=== PATIENT | male | born 1955 | race Caucasian/White ===

== ENCOUNTER 2018-06-15 08:49 | Inpatient (IN) | payer BC, MEDICARE ==
[~2018-06-15] VITALS: Ht 182.9 cm; Wt 96.1 kg
[2018-06-15] MEDS ORDERED: MIDAZOLAM 1 MG/ML, 2ML IVPush ONE (08:51)
[2018-06-15] MEDS ORDERED: PLEASE ENTER HEIGHT AND WEIGHT MC SCH (09:00)
[2018-06-15] MEDS ORDERED: PROPOFOL 100 ML IV ONE ×3 (09:05→17:23)
[2018-06-15] MEDS ORDERED: MIDAZOLAM 1 MG/ML, 2ML ONE ×2 (09:17→11:03)
[2018-06-15] MEDS ORDERED: SODIUM CHLORIDE 0.9%, 500ML IVBOLUS ONE (09:30)
--- NOTE | 2018-06-15 09:41 | NUR ---
LATE ENTRY FOR 0900 REC'D RPT FROM LAWANDA BARRIENTOS AND ASSUMED PT CARE. PT WAS REC'D VIA CARE FLIGHT ON TRANSFER FROM [facility] ED. PER RPT PT PRESENT TO [facility] VIA EMS WITH C/O SOB NOT RESPONSIVE TO HOME BREATHING TREATMENTS. PT WAS INTUBATED AT [facility] AND ARRIVED HERE SEDATED ON PROPOFOL 50MCG/KG/MIN. PT BEDCAME AGGITATED WHILE BEING MOVED FROM CARE FLIGHT [facility] TO ED [facility] AND WAS GIVEN 2MG OF VERSED WITH EFFECT. DR HORTA AT BEDSIDE, ASSESSMENT REV AND ORDERS REC'D.
--- NOTE | 2018-06-15 09:44 | NUR ---
LATE ENTRY FOR 919, PT BECAME AGGITATED SITTING UP AND PULLING ON RESTRAINTS WHEN STIMULATED WITH REPOSITIONING. PT DOES NOT RESPOND TO RN'S VERBAL ATTEMPTS TO ORIENT AND CALM HIM. 2MG VERSED IVP GIVEN WITH EFFECT.
[2018-06-15] MEDS ORDERED: VECURONIUM 10 MG ONE (11:03)
[2018-06-15] MEDS ORDERED: methylPREDNISolone SOD SUCC 125 MG/2 ML ONE (11:12)
[2018-06-15] MEDS: methylPREDNISolone SOD SUCC 125 MG/2 ML IVPush SCH ×2 (11:30→22:25)
[2018-06-15] MEDS: SODIUM CHLORIDE 0.9% 1,000 ML IV SCH ×2 (11:30→11:48)
[2018-06-15 12:29] LABS: RAPID INFLUENZA A Negative (Negative); RAPID INFLUENZA B Negative (Negative)
--- NOTE | 2018-06-15 13:19 | NUR ---
PT GIRLFRIEND: CRISTIANA MAYO [phone]
[2018-06-15] MEDS ORDERED: CEFTRIAXONE PMX 2GM/50ML 50 ML ONE (13:21)
[2018-06-15] MEDS: CEFTRIAXONE PMX 2GM/50ML 50 ML IVPB SCH (13:25)
[2018-06-15 13:48] LABS: TROPONIN I 0.119 ng/mL (0.000-0.045)
--- NOTE | 2018-06-15 13:52 | NUR ---
PT. REMAINS MONITORED AND ON THE VENTILATOR. PT.'S HOB IS ELEVATED GREATER THAN 30 DEGREES. PT. HAS BLANKETS IN PLACE FOR WARMTH. VITALS ARE STABLE. PT. HAS NO S/S OF DISCOMFORT. PT.'S [place] IS PRODUCING DARK YELLOW URINE. IV ABX ARE INFUSING ON THE PUMP. SIDERAILS REMAIN UP X 2.
[2018-06-15] MEDS: DOXYCYCLINE 100 MG in DEXTROSE 5% 250 ML IV SCH (13:59)
--- NOTE | 2018-06-15 14:05 | NUR ---
PT. HAS A NEW BOTTLE OF PROPOFOL INFUSING.
--- NOTE | 2018-06-15 15:25 | NUR ---
VS UPDATED AND WNL. PT REMAINS ON PROPOFOL DRIP AT 50MCG/KG/HR AND APPEARS COMFORTABLE. PT TOLERATING VENTILATOR WELL.
[2018-06-15] MEDS ORDERED: METO25TA35 PO (15:48)
--- NOTE | 2018-06-15 15:59 | NUR ---
GIRLFRIEND, ENDY, CALLED TO CHECK ON PATIENT. REQUESTED THAT ENDY CALL-BACK WITH HOME MEDICATION LIST. ENDY TO CALL BACK.
[2018-06-15] MEDS ORDERED: BISACODYL 10 MG SUPP PR PRN ×2 (16:30→19:00)
[2018-06-15] MEDS ORDERED: ACETAMINOPHEN 325 MG TABLET PO PRN (16:30)
[2018-06-15] MEDS ORDERED: POLYETHYLENE GLYCOL 17 GM PACKET PO PRN (16:30)
--- NOTE | 2018-06-15 16:45 | NUR ---
[facility] TELEPHONE HAND-OFF REPORT TO LAWANDA MITCHELL. PATIENT TO GO TO CCU SOON.
[2018-06-15] MEDS: ENOXAPARIN 40 MG/0.4 ML SQ SCH (18:24)
[2018-06-15] MEDS: ALBUTEROL/IPRATROPIUM 2.5MG/0.5MG, 3 ML INLINE SCH ×2 (19:00→22:55)
[2018-06-15] MEDS ORDERED: LACTULOSE 20 GM/30 ML UDC NG PRN (19:00)
[2018-06-15] MEDS ORDERED: GLUCAGON 1 MG IM PRN (19:00)
[2018-06-15] MEDS ORDERED: SENNA/DOCUSATE TABLET NG PRN (19:00)
[2018-06-15] MEDS ORDERED: HALOPERIDOL 5 MG/ML IVPush PRN (19:00)
[2018-06-15] MEDS ORDERED: SENNOSIDES 8.8 MG/5 ML ORAL SOL NG PRN (19:00)
[2018-06-15] MEDS ORDERED: DEXTROSE 50%, 50ML SYRINGE IVPush PRN (19:00)
[2018-06-15] MEDS ORDERED: DEXTROSE 4 GM TAB.CHEW PO PRN (19:00)
[2018-06-15] MEDS ORDERED: PHARMACY MAY ADJ FOR RENAL FX MC SCH (19:00)
[2018-06-15 19:26] LABS: INTERNATIONAL NORMALIZED RATIO 0.92 (0.93-1.1); PROTHROMBIN TIME 9.7 Seconds (9.6-11.5)
[2018-06-15 19:28] LABS: TRIGLYCERIDES 66 mg/dL (50-200)
[2018-06-15 19:34] LABS: TROPONIN I 0.118 ng/mL (0.000-0.045)
[2018-06-15] MEDS: INSULIN LISPRO 100 UNITS/ML, PEN SQ-INSULIN SCH (21:00)
[2018-06-15] MEDS: FAMOTIDINE 20 MG/2 ML IVPush SCH (22:25)
[2018-06-15] MEDS: FENTANYL PF 100 MCG/2ML IVPush PRN (22:25)
[2018-06-15] MEDS: SODIUM CHLORIDE FLUSH 10ML SYR IVF SCH (22:26)
[2018-06-15] MEDS: PROPOFOL 100 ML IV PRN ×2 (22:37→22:38)
[2018-06-15] MEDS: BUDESONIDE 0.5 MG/2 ML INHA INH SCH (22:55)
[2018-06-15 23:13] LABS: MICROSCOPIC INDICATED
[2018-06-15 23:15] LABS: CULTURE INDICATED? NO
[2018-06-16] MEDS: methylPREDNISolone SOD SUCC 125 MG/2 ML IVPush SCH ×4 (01:33→19:34)
[2018-06-16] MEDS: DOXYCYCLINE 100 MG in DEXTROSE 5% 250 ML IV SCH ×2 (01:33→12:58)
[2018-06-16] MEDS: ALBUTEROL/IPRATROPIUM 2.5MG/0.5MG, 3 ML INLINE SCH ×6 (02:17→22:24)
[2018-06-16] MEDS: PROPOFOL 100 ML IV PRN ×6 (03:20→21:34)
[2018-06-16 04:27] VITALS: BP 108/63
[2018-06-16 05:07] LABS: MEAN CORPUSCULAR HEMOGLOBIN 32.6 pg (27.5-34.5); MEAN CORPUSCULAR VOLUME 98.7 fL (81-97); MEAN PLATELET VOLUME 8.5 fL (7.4-10.4); PLATELET COUNT 146 x10^3/uL (130-400); RED BLOOD COUNT 3.92 x10^6/uL (4.38-5.82); RED CELL DISTRIBUTION WIDTH 15.5 % (9.4-14.8)
[2018-06-16 05:18] LABS: ALANINE AMINOTRANSFERASE 54 U/L (12-78); ALBUMIN 2.9 g/dL (3.4-5.0); ANION GAP 3 mmol/L (5-15); CALCIUM 7.5 mg/dL (8.5-10.1); CHLORIDE 110 mmol/L (98-107)
[2018-06-16 05:21] LABS: ALKALINE PHOSPHATASE 45 U/L (45-117); BILIRUBIN,TOTAL 0.3 mg/dL (0.2-1.0); CREATININE 0.73 mg/dL (0.7-1.3); TOTAL PROTEIN 5.8 g/dL (6.4-8.2)
[2018-06-16 05:36] LABS: BASOPHILS % (AUTO) 0 % (0-1); EOSINOPHILS % (AUTO) 0 % (1-7); LYMPHOCYTES # (AUTO) 0.27 x10^3/uL (1-3.4); LYMPHOCYTES % (AUTO) 3 % (22-44); MD SCAN; MONOCYTES # (AUTO) 0.15 x10^3/uL (0.2-0.8); MONOCYTES % (AUTO) 2 % (2-9); NEUTROPHILS # (AUTO) 7.59 x10^3/uL (1.8-6.8); NEUTROPHILS % (AUTO) 95 % (42-75)
[2018-06-16 06:59] LABS: AMPHETAMINE SCREEN, URINE Positive (Negative); BARBITURATE SCREEN, URINE Negative (Negative); BENZODIAZEPINE SCREEN, URINE Positive (Negative); CANNABINOID SCREEN, URINE Negative (Negative); COCAINE SCREEN, URINE Negative (Negative); METHADONE SCREEN, URINE Negative (Negative); OPIATE SCREEN, URINE Negative (Negative)
[2018-06-16] MEDS: BUDESONIDE 0.5 MG/2 ML INHA INH SCH ×2 (07:10→22:24)
[2018-06-16] MEDS: FENTANYL PF 100 MCG/2ML IVPush PRN ×2 (07:45→17:08)
[2018-06-16] MEDS: INSULIN LISPRO 100 UNITS/ML, PEN SQ-INSULIN SCH ×4 (08:12→23:00)
[2018-06-16] MEDS: ASPIRIN 325 MG TABLET PO SCH (08:45)
[2018-06-16] MEDS: SODIUM CHLORIDE FLUSH 10ML SYR IVF SCH ×2 (08:46→20:20)
[2018-06-16] MEDS: FAMOTIDINE 20 MG/2 ML IVPush SCH ×2 (08:46→20:20)
[2018-06-16] MEDS ORDERED: SODIUM CHLORIDE 0.9% 1,000 ML IV SCH (09:30)
--- NOTE | 2018-06-16 10:35 | NUR ---
TF GOAL: w/ propofol: PROMOTE @ 75ML/HR off propofol: PROMOTE @ 85ML/HR
[2018-06-16] MEDS ORDERED: methylPREDNISolone SOD SUCC 125 MG/2 ML IVPush ONE (10:45)
[2018-06-16] MEDS: PRASUGREL 10 MG TABLET PO SCH (12:14)
[2018-06-16] MEDS: CEFTRIAXONE PMX 2GM/50ML 50 ML IVPB SCH (12:58)
[2018-06-16] MEDS: ENOXAPARIN 40 MG/0.4 ML SQ SCH (17:59)
[2018-06-16] MEDS ORDERED: PRAS10TA4 PO (18:38)
[2018-06-16] MEDS ORDERED: PRED1TAB PO (18:38)
[2018-06-16] MEDS ORDERED: ATOR40TA78 PO (18:38)
[2018-06-16] MEDS: SIMVASTATIN 40 MG TABLET PO SCH (20:20)
[2018-06-17] MEDS: FENTANYL PF 100 MCG/2ML IVPush PRN (00:24)
[2018-06-17] MEDS: PROPOFOL 100 ML IV PRN (00:45)
[2018-06-17] MEDS: DOXYCYCLINE 100 MG in DEXTROSE 5% 250 ML IV SCH (01:17)
[2018-06-17] MEDS: methylPREDNISolone SOD SUCC 125 MG/2 ML IVPush SCH ×3 (01:41→13:46)
[2018-06-17] MEDS: ALBUTEROL/IPRATROPIUM 2.5MG/0.5MG, 3 ML INLINE SCH ×4 (02:50→16:20)
[2018-06-17 04:03] VITALS: BP 115/67
[2018-06-17 04:40] LABS: BASOPHILS # (AUTO) 0.02 x10^3/uL (0-0.1); BASOPHILS % (AUTO) 0 % (0-1); EOSINOPHILS % (AUTO) 0 % (1-7); LYMPHOCYTES % (AUTO) 3 % (22-44); MD NO; MEAN CORPUSCULAR HGB CONC 33.6 g/dL (33.2-36.2); MEAN CORPUSCULAR VOLUME 98.3 fL (81-97); MEAN PLATELET VOLUME 9.2 fL (7.4-10.4); MONOCYTES # (AUTO) 0.31 x10^3/uL (0.2-0.8); MONOCYTES % (AUTO) 3 % (2-9); NEUTROPHILS # (AUTO) 8.69 x10^3/uL (1.8-6.8); NEUTROPHILS % (AUTO) 93 % (42-75); PLATELET COUNT 137 x10^3/uL (130-400); RED BLOOD COUNT 3.72 x10^6/uL (4.38-5.82); RED CELL DISTRIBUTION WIDTH 15.3 % (9.4-14.8)
[2018-06-17 04:42] LABS: CHLORIDE 109 mmol/L (98-107)
[2018-06-17 04:54] LABS: ALANINE AMINOTRANSFERASE 41 U/L (12-78); ALBUMIN 2.8 g/dL (3.4-5.0); ALKALINE PHOSPHATASE 41 U/L (45-117); ANION GAP 5 mmol/L (5-15); BILIRUBIN,TOTAL 0.2 mg/dL (0.2-1.0); CALCIUM 7.7 mg/dL (8.5-10.1); CREATININE 0.85 mg/dL (0.7-1.3); TOTAL PROTEIN 5.5 g/dL (6.4-8.2)
[2018-06-17] MEDS: INSULIN LISPRO 100 UNITS/ML, PEN SQ-INSULIN SCH ×4 (04:59→22:59)
[2018-06-17] MEDS: BUDESONIDE 0.5 MG/2 ML INHA INH SCH ×2 (09:00→20:07)
[2018-06-17] MEDS: ASPIRIN 325 MG TABLET PO SCH (11:56)
[2018-06-17] MEDS: FAMOTIDINE 20 MG/2 ML IVPush SCH ×2 (11:56→20:03)
[2018-06-17] MEDS: PRASUGREL 10 MG TABLET PO SCH (11:56)
[2018-06-17] MEDS: SODIUM CHLORIDE FLUSH 10ML SYR IVF SCH ×2 (11:57→21:00)
[2018-06-17] MEDS: ENOXAPARIN 40 MG/0.4 ML SQ SCH ×2 (18:32→18:33)
[2018-06-17] MEDS: methylPREDNISolone SOD SUCC 40 MG/ML IVPush SCH (20:03)
[2018-06-17] MEDS: SIMVASTATIN 40 MG TABLET PO SCH (20:03)
[2018-06-17] MEDS: ALBUTEROL/IPRATROPIUM 2.5MG/0.5MG, 3 ML NPPB SCH (20:07)
[2018-06-18] MEDS: methylPREDNISolone SOD SUCC 40 MG/ML IVPush SCH ×2 (01:27→08:13)
[2018-06-18] MEDS: INSULIN LISPRO 100 UNITS/ML, PEN SQ-INSULIN SCH ×4 (04:06→21:00)
[2018-06-18 04:17] VITALS: BP 101/48
[2018-06-18 04:41] LABS: BASOPHILS # (AUTO) 0.01 x10^3/uL (0-0.1); BASOPHILS % (AUTO) 0 % (0-1); EOSINOPHILS % (AUTO) 0 % (1-7); LYMPHOCYTES # (AUTO) 0.35 x10^3/uL (1-3.4); LYMPHOCYTES % (AUTO) 3 % (22-44); MD NO; MEAN CORPUSCULAR HGB CONC 33.5 g/dL (33.2-36.2); MEAN CORPUSCULAR VOLUME 98.5 fL (81-97); MEAN PLATELET VOLUME 9.2 fL (7.4-10.4); MONOCYTES % (AUTO) 3 % (2-9); NEUTROPHILS # (AUTO) 10.93 x10^3/uL (1.8-6.8); NEUTROPHILS % (AUTO) 94 % (42-75); PLATELET COUNT 137 x10^3/uL (130-400); RED BLOOD COUNT 3.63 x10^6/uL (4.38-5.82); RED CELL DISTRIBUTION WIDTH 15.5 % (9.4-14.8)
[2018-06-18 04:42] LABS: ANION GAP 4 mmol/L (5-15); CALCIUM 7.7 mg/dL (8.5-10.1); CHLORIDE 109 mmol/L (98-107)
[2018-06-18 04:44] LABS: CREATININE 0.81 mg/dL (0.7-1.3); TRIGLYCERIDES 49 mg/dL (50-200)
[2018-06-18] MEDS: BUDESONIDE 0.5 MG/2 ML INHA INH SCH ×2 (07:40→21:15)
[2018-06-18] MEDS: ALBUTEROL/IPRATROPIUM 2.5MG/0.5MG, 3 ML NPPB SCH ×4 (07:40→21:15)
[2018-06-18] MEDS ORDERED: FUROSEMIDE 40 MG/4 ML IV STA (07:47)
[2018-06-18] MEDS: PRASUGREL 10 MG TABLET PO SCH (08:13)
[2018-06-18] MEDS: FAMOTIDINE 20 MG/2 ML IVPush SCH (08:13)
[2018-06-18] MEDS: ASPIRIN 325 MG TABLET PO SCH (08:13)
[2018-06-18] MEDS: SODIUM CHLORIDE FLUSH 10ML SYR IVF SCH ×2 (08:14→21:05)
[2018-06-18] MEDS: ASPIRIN 81 MG TABLET CHEW PO SCH (08:57)
[2018-06-18 18:58] VITALS: BP 150/67
[2018-06-18] MEDS: FAMOTIDINE 20 MG TABLET PO SCH (21:05)
[2018-06-18] MEDS: SIMVASTATIN 40 MG TABLET PO SCH (21:05)
[2018-06-19 01:46] VITALS: BP 133/68
[2018-06-19] MEDS: ALBUTEROL/IPRATROPIUM 2.5MG/0.5MG, 3 ML NPPB PRN (04:16)
[2018-06-19 05:53] LABS: BASOPHILS # (AUTO) 0.02 x10^3/uL (0-0.1); BASOPHILS % (AUTO) 0 % (0-1); EOSINOPHILS # (AUTO) 0.02 x10^3/uL (0-0.4); EOSINOPHILS % (AUTO) 0 % (1-7); LYMPHOCYTES # (AUTO) 2.06 x10^3/uL (1-3.4); LYMPHOCYTES % (AUTO) 19 % (22-44); MD NO; MEAN CORPUSCULAR HEMOGLOBIN 32.5 pg (27.5-34.5); MEAN CORPUSCULAR HGB CONC 33.7 g/dL (33.2-36.2); MEAN CORPUSCULAR VOLUME 96.5 fL (81-97); MONOCYTES # (AUTO) 0.87 x10^3/uL (0.2-0.8); MONOCYTES % (AUTO) 8 % (2-9); NEUTROPHILS # (AUTO) 7.64 x10^3/uL (1.8-6.8); NEUTROPHILS % (AUTO) 72 % (42-75); PLATELET COUNT 146 x10^3/uL (130-400); RED BLOOD COUNT 3.94 x10^6/uL (4.38-5.82); RED CELL DISTRIBUTION WIDTH 14.9 % (9.4-14.8)
[2018-06-19 06:06] LABS: ANION GAP 2 mmol/L (5-15); CHLORIDE 105 mmol/L (98-107); CREATININE 0.66 mg/dL (0.7-1.3)
[2018-06-19] MEDS: ALBUTEROL/IPRATROPIUM 2.5MG/0.5MG, 3 ML NPPB SCH ×4 (06:50→21:00)
[2018-06-19] MEDS: BUDESONIDE 0.5 MG/2 ML INHA INH SCH ×2 (06:50→21:00)
[2018-06-19] MEDS: INSULIN LISPRO 100 UNITS/ML, PEN SQ-INSULIN SCH ×4 (07:00→19:49)
[2018-06-19 07:02] VITALS: BP 122/67
[2018-06-19] MEDS: ASPIRIN 81 MG TABLET CHEW PO SCH (07:54)
[2018-06-19] MEDS: PRASUGREL 10 MG TABLET PO SCH (07:55)
[2018-06-19] MEDS: FAMOTIDINE 20 MG TABLET PO SCH ×2 (07:55→19:48)
[2018-06-19] MEDS: SODIUM CHLORIDE FLUSH 10ML SYR IVF SCH ×2 (07:56→21:00)
[2018-06-19] MEDS ORDERED: FUROSEMIDE 40 MG TABLET PO ONE (11:00)
[2018-06-19 12:17] VITALS: BP 139/74
[2018-06-19] MEDS: ENOXAPARIN 40 MG/0.4 ML SQ SCH (17:22)
[2018-06-19 19:16] VITALS: BP 129/76
[2018-06-19] MEDS: SIMVASTATIN 40 MG TABLET PO SCH (19:49)
[2018-06-20 02:41] VITALS: BP 122/70
[2018-06-20] MEDS: ALBUTEROL/IPRATROPIUM 2.5MG/0.5MG, 3 ML NPPB PRN (04:08)
[2018-06-20 05:29] LABS: BASOPHILS # (AUTO) 0.03 x10^3/uL (0-0.1); BASOPHILS % (AUTO) 0 % (0-1); EOSINOPHILS # (AUTO) 0.08 x10^3/uL (0-0.4); EOSINOPHILS % (AUTO) 1 % (1-7); LYMPHOCYTES # (AUTO) 1.84 x10^3/uL (1-3.4); LYMPHOCYTES % (AUTO) 15 % (22-44); MD NO; MEAN CORPUSCULAR HEMOGLOBIN 32.6 pg (27.5-34.5); MEAN CORPUSCULAR HGB CONC 33.5 g/dL (33.2-36.2); MEAN CORPUSCULAR VOLUME 97.3 fL (81-97); MEAN PLATELET VOLUME 9.2 fL (7.4-10.4); MONOCYTES # (AUTO) 0.84 x10^3/uL (0.2-0.8); MONOCYTES % (AUTO) 7 % (2-9); NEUTROPHILS # (AUTO) 9.89 x10^3/uL (1.8-6.8); NEUTROPHILS % (AUTO) 78 % (42-75); PLATELET COUNT 159 x10^3/uL (130-400); RED BLOOD COUNT 4.31 x10^6/uL (4.38-5.82); RED CELL DISTRIBUTION WIDTH 14.9 % (9.4-14.8)
[2018-06-20] MEDS: ALBUTEROL/IPRATROPIUM 2.5MG/0.5MG, 3 ML NPPB SCH ×2 (06:44→10:31)
[2018-06-20] MEDS: BUDESONIDE 0.5 MG/2 ML INHA INH SCH (06:58)
[2018-06-20] MEDS: INSULIN LISPRO 100 UNITS/ML, PEN SQ-INSULIN SCH ×2 (07:00→11:00)
[2018-06-20 07:03] VITALS: BP 121/75
[2018-06-20] MEDS: FAMOTIDINE 20 MG TABLET PO SCH (08:37)
[2018-06-20] MEDS: PRASUGREL 10 MG TABLET PO SCH (08:37)
[2018-06-20] MEDS: ASPIRIN 81 MG TABLET CHEW PO SCH (08:37)
[2018-06-20] MEDS: SODIUM CHLORIDE FLUSH 10ML SYR IVF SCH (09:00)
[2018-06-20] MEDS ORDERED: IPRA3AMP30 NPPB (12:09)
[2018-06-20] MEDS ORDERED: LOSA50TA14 PO (12:09)
[2018-06-20] MEDS ORDERED: ALBU18HF INH (12:09)
[2018-06-20] MEDS ORDERED: ASPI-515 PO (12:09)
[2018-06-20] MEDS ORDERED: PRED5TAB PO (12:09)
[2018-06-20 12:22] VITALS: BP 119/72
== END 2018-06-20 14:00 | disposition home health service (06) | DRG 208 ==
LOC: ED 08:53 → EDIP 09:05 → CCU 17:07 → 3NE 06-18 15:11 → DCLOUNGE 06-20 13:55
PROVIDERS: ADMIT Hospitalist; ATTEND Hospitalist
PROC: 5A1945Z Respiratory Ventilation, 24-96 Consecutive Hours (ICD-10-PCS; principal; 2018-06-15)
PROC: 0T9B70Z Drainage of Bladder with Drainage Device, Via Natural or Artificial Opening (ICD-10-PCS; 2018-06-15)
DX: J96.01 Acute respiratory failure with hypoxia (principal); J15.9 Unspecified bacterial pneumonia; J81.0 Acute pulmonary edema; J44.1 Chronic obstructive pulmonary disease with (acute) exacerbation; E87.2 Acidosis; I24.8 Other forms of acute ischemic heart disease; J44.0 Chronic obstructive pulmonary disease with (acute) lower respiratory infection; Z99.11 Dependence on respirator [ventilator] status; J96.02 Acute respiratory failure with hypercapnia; I95.9 Hypotension, unspecified; I10 Essential (primary) hypertension; I35.8 Other nonrheumatic aortic valve disorders; I25.10 Atherosclerotic heart disease of native coronary artery without angina pectoris; I25.2 Old myocardial infarction; Z79.02 Long term (current) use of antithrombotics/antiplatelets; Z95.5 Presence of coronary angioplasty implant and graft
CPT/HCPCS: 36415; 36600; 71045; 80048; 80053; 80307; 81001; 82803; 82962; 83605; 83735; 83880; 84100; 84145; 84478; 84484; 85025; 85610; 85730; 87040; 87070; 87081; 87205; 87400; 93005; 93306; 94002; 94003; 94640; 96374; 99291; G0378; J0696; J1650; J1940; J2250; J2704; J3010; J7060; J7620; J7626; J1815; J2920; J2930; J3490; J7030; J7040; J7512